=== PATIENT | female | born 1970 | race Caucasian/White ===

== ENCOUNTER 2018-12-05 05:39 | Emergency (ER) | payer SELFPAY ==
[2018-12-05] MEDS ORDERED: Lidocaine 1% w/Epinephrine 1:100K 20 ML VIAL ONE (06:00)
== END 2018-12-05 06:19 | disposition home or self-care (01) ==
LOC: ERS 05:39
DX: L72.8 Other follicular cysts of the skin and subcutaneous tissue (principal); E66.9 Obesity, unspecified; I10 Essential (primary) hypertension
CPT/HCPCS: 10061; 87070; 87076; 87205; J2001

== ENCOUNTER 2019-05-24 14:21 | Emergency (ER) | payer SELFPAY ==
[2019-05-24] MEDS ORDERED: Ketorolac Tromethamine 30 MG/ML VIAL ONE (15:33)
--- NOTE | 2019-05-24 16:05 | RAD ---
LEFT HIP TWO VIEWS: 05/24/19 HISTORY: Hip pain. Status post fall. There is no signs of fracture or dislocation. Prominent ossification incidentally noted along the ant erior superior iliac spine. IMPRESSION: No evidence of fracture. POS: [facility]
--- NOTE | 2019-05-24 16:12 | RAD ---
LEFT KNEE FOUR VIEWS: 05/24/19 HISTORY: Knee pain status post fall. There is the suggestion of some slight medial compartment joint space narrowing. There is an avulsive type fracture involving the fibular head best demonstrated on the oblique view. IMPRESSION: Avulsive fracture from the fibular head. This would be at the level of the attachment of the lateral collateral ligament. If indicated MRI may be helpful in evaluating for internal derangement. POS: [facility]
== END 2019-05-24 17:35 | disposition home or self-care (01) ==
LOC: ERS 14:21
DX: S82.832A Other fracture of upper and lower end of left fibula, initial encounter for closed fracture (principal); I10 Essential (primary) hypertension; E66.9 Obesity, unspecified; F17.210 Nicotine dependence, cigarettes, uncomplicated; Z79.899 Other long term (current) drug therapy; W01.0XXA Fall on same level from slipping, tripping and stumbling without subsequent striking against object, initial encounter
CPT/HCPCS: 96372; J1885

== ENCOUNTER 2021-04-09 12:16 | Emergency (ER) | payer SELFPAY ==
[2021-04-09 18:56] LABS: SARS-CoV-2 PCR by NAA DETECTED (NotDetected)
== END 2021-04-09 13:46 | disposition home or self-care (01) ==
LOC: ERS 12:16
DX: U07.1 COVID-19 (principal); I10 Essential (primary) hypertension; F17.210 Nicotine dependence, cigarettes, uncomplicated; E66.9 Obesity, unspecified; Z68.45 Body mass index [BMI] 70 or greater, adult
CPT/HCPCS: 99284; U0003; U0005

== ENCOUNTER 2022-03-12 08:05 | Emergency (ER) | payer OTHER, SELFPAY | END 2022-03-12 08:43 | disposition home or self-care (01) | LOC: ERS 08:05 | DX: B02.9 Zoster without complications (principal); I10 Essential (primary) hypertension | CPT/HCPCS: 99282 ==

== ENCOUNTER 2023-03-25 12:42 | Emergency (ER) | payer SELFPAY | END 2023-03-25 14:06 | disposition home or self-care (01) | LOC: ERS 12:42 | DX: R07.81 Pleurodynia (principal); I10 Essential (primary) hypertension; E66.9 Obesity, unspecified; F17.210 Nicotine dependence, cigarettes, uncomplicated; Z79.899 Other long term (current) drug therapy | CPT/HCPCS: 71046; 93005 ==